=== PATIENT | female | born 2000 | race Caucasian/White ===

== ENCOUNTER 2024-02-03 18:30 | Emergency (ER) | payer SELFPAY ==
--- NOTE | 2024-02-03 20:07 | PC.NURSE ---
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 Dose provided by pharmacist.
--- NOTE | 2024-02-03 23:37 | ED.GENADULT ---
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
== END 2024-02-03 20:08 | disposition home or self-care (01) ==
PROVIDERS: Emergency Provider Emergency Medicine
DX: Z20.818 Contact with and (suspected) exposure to other bacterial communicable diseases (principal)
CPT/HCPCS: 99281

== ENCOUNTER → 2024-02-18 15:59 | Outpatient (CLI) | payer OTHER, SELFPAY | PROVIDERS: Referring Provider Internal Medicine; Visit Provider Internal Medicine | DX: Z23 Encounter for immunization (principal) | CPT/HCPCS: 90471; 90656 ==

== ENCOUNTER 2024-04-30 22:51 | Emergency (ER) | payer OTHER, SELFPAY ==
--- NOTE | 2024-04-30 22:54 | DI.RAD.S_ITS ---
PROCEDURE: XR CHEST 2V INDICATIONS: cough with hemoptosis TECHNIQUE: 2 views of the chest were acquired. COMPARISON: None. FINDINGS: Surgical changes and devices: None. Lungs and pleura: Lungs are clear. No pleural effusions or pneumothorax. Mediastinum: Mediastinal contours are normal. Heart size is normal. Bones and chest wall: No suspicious bony abnormalities. Soft tissues appear unremarkable. IMPRESSION: No acute cardiopulmonary abnormality is seen. Dictated by: Diego Palmer M.D. on 04/30/2024 at 23:19 Approved by: Diego Palmer M.D. on 04/30/2024 at 23:20
--- NOTE | 2024-04-30 22:57 | ED.URI ---
HPI - URI/Sore Throat General Chief Complaint: Shortness of Breath/Dyspnea Stated Complaint: upper resitory Time Seen by Provider: 04/30/24 22:57 History of Present Illness HPI Narrative: 23-year-old female with history of PCOS, childhood asthma presents with 1 week of nonproductive cough, intermittent fevers, headache, intermittent nosebleeds. Works as tech in ED, had coughing fit and coughed up several clots of red blood after a nosebleed. Patient states that her primary concern is that she may have pneumonia. Feels as though there is fluid in her chest. Cough worse when lying flat. Recently bought saline spray for nosebleeds. Related Data Allergies Allergy/AdvReac Type Severity Reaction Status Date / Time No Known Drug Allergies Allergy Verified 02/03/24 19:44 Patient History Social History Smoking Status: Current every day smoker Exam Initial Vital Signs Initial Vital Signs: Vital Signs Temperature 99.8 F H 04/30/24 23:02 Pulse Rate 102 H 04/30/24 23:02 Respiratory Rate 20 04/30/24 23:02 Blood Pressure 155/90 H 04/30/24 23:02 Pulse Oximetry 100 04/30/24 23:02 Oxygen Delivery Method Room Air 04/30/24 23:02 Const: Awake, alert, no acute distress, nontoxic appearing HEENT: Small amount dried blood L nare, no active bleeding Cardiac: Tachycardia, regular rhythm RESP: unlabored, clear bilaterally, no wheezing Skin: Warm, Dry, intact, no rashes Neuro: AO x3, CN II-XII grossly intact, moves all extremities Course Orders Ordered: ED Orders 04/30/24 22:54 XR chest 2V Stat Discontinued Medications Albuterol (Albuterol Hfa Prepack) 1 box MISC DIRECTED ONE Stop: 05/01/24 00:34 Last Admin: 05/01/24 00:40 Dose: 1 box Documented By: VAUGHN Albuterol/Ipratropium (Albuterol/Ipratropium 3 Ml Ampul) 3 ml INH NOW ONE Stop: 04/30/24 23:24 Last Admin: 04/30/24 23:41 Dose: 3 ml Documented By: TANO Benzonatate (Benzonatate 100 Mg Capsule) 200 mg PO NOW ONE Stop: 04/30/24 23:29 Last Admin: 04/30/24 23:52 Dose: 200 mg Documented By: VAUGHN Dexamethasone (Dexamethasone 10 Mg/Ml Vial) 10 mg PO NOW ONE Stop: 04/30/24 23:29 Last Admin: 04/30/24 23:52 Dose: 10 mg Documented By: VAUGHN Vital Signs Vital signs: Vital Signs - 8 hr 04/30/24 23:02 04/30/24 23:22 04/30/24 23:23 Temperature 99.8 F H Pulse Rate 102 H 92 H 91 H Respiratory Rate 20 Blood Pressure 155/90 H 146/68 H Pulse Oximetry 100 99 99 Oxygen Delivery Method Room Air Room Air Oxygen Flow Rate Fraction of Inspired Oxygen 04/30/24 23:30 04/30/24 23:30 04/30/24 23:34 Temperature Pulse Rate 86 Respiratory Rate 21 Blood Pressure 133/71 Pulse Oximetry 98 Oxygen Delivery Method Oxygen Flow Rate Fraction of Inspired Oxygen 04/30/24 23:41 05/01/24 00:00 05/01/24 00:30 Temperature Pulse Rate 73 Respiratory Rate 16 Blood Pressure 123/64 126/59 L Pulse Oximetry 98 Oxygen Delivery Method Room Air Oxygen Flow Rate 0 Fraction of Inspired Oxygen 21 05/01/24 00:30 05/01/24 00:48 Temperature 99.9 F H Pulse Rate 91 H Respiratory Rate 20 Blood Pressure Pulse Oximetry 98 Oxygen Delivery Method Oxygen Flow Rate Fraction of Inspired Oxygen MDM - URI/Sore Throat Differential Diagnosis Differential diagnosis: Likely upper respiratory infection, viral infection, bronchitis and influenza Imaging Data Chest x-ray: Radiologist's Impression: PROCEDURE: XR CHEST 2V INDICATIONS: cough with hemoptosis TECHNIQUE: 2 views of the chest were acquired. COMPARISON: None. FINDINGS: Surgical changes and devices: None. Lungs and pleura: Lungs are clear. No pleural effusions or pneumothorax. Mediastinum: Mediastinal contours are normal. Heart size is normal. Bones and chest wall: No suspicious bony abnormalities. Soft tissues appear unremarkable. IMPRESSION: No acute cardiopulmonary abnormality is seen. Dictated by: Diego Palmer M.D. on 04/30/2024 at 23:19 Approved by: Diego Palmer M.D. on 04/30/2024 at 23:20 [facility] Narrative Medical decision making narrative: 1 week of cough and intermittent nosebleeds. Checked in for evaluation of possible PNA. Patient did have episode of coughing up blood, however this was after nosebleeds. Patient herself states that she thinks the blood is from her nosebleeds. Hx of nosebleeds in youth requiring cautery. Patient initially tachycardic in triage, however after resting in ED bed heart rate returns to <100bpm. 2 view chest XR negative for PNA. No active bleeding from nares in ED. Lungs clear bilaterally, possible faint inspiratory crackles at bases. Patient given duoneb treatment, however patient states this only made her lightheaded. Patient monitored in the ED, no further episodes of bleeding noted. Vital signs remained stable. Patient requested cough medications, these were called in to [facility] in [place]. Steroid taper also sent with the patient. Advised to use saline sprays for nosebleeds, can also use Flonase as there is a high amount of allergens at this time. Discharge Plan Departure Patient Disposition: Home Clinical Impression: Upper respiratory infection Instructions: DI for Acute Bronchitis Activity Restrictions/Additional Instructions: Your prescriptions of steroids and cough medications have been sent to your pharmacy via call in. They should be available later in the morning. Take Tylenol and ibuprofen as needed for fever or pain. Robitussin may also be used [id number] for cough and cold. Use Flonase or nasal sprays to keep your nasal mucosa moist to prevent nosebleeds. Referrals: Miscellaneous,Doctor, MD [Primary Care Provider] - Stand Alone Forms: Patient Portal/API/Survey
[2024-04-30 23:02] VITALS: BP 155/90; PULSE 102; RESP 20; TEMP 37.7; O2SAT 100; BMI 38.3
--- NOTE | 2024-04-30 23:09 | PC.NURSE ---
Provider aware of triage assessment and ordered 2V chest xray.
--- NOTE | 2024-04-30 23:17 | PC.NURSE ---
Pt reports nausea at this time and declines antiemetic medications. She also reports hx of childhood asthma.
[2024-04-30 23:22] VITALS: PULSE 92; O2SAT 99
[2024-04-30 23:23] VITALS: BP 146/68; PULSE 91; O2SAT 99
[2024-04-30 23:30] VITALS: BP 133/71; PULSE 86; O2SAT 98
[2024-04-30 23:34] VITALS: RESP 21
[2024-04-30 23:41] VITALS: PULSE 73; RESP 16; O2SAT 98
[2024-04-30] MEDS: ALBUTEROL/IPRATROPIUM 3 ML AMPUL INH (23:41)
[2024-04-30] MEDS: DEXAMETHASONE 10 MG/ML VIAL PO (23:52)
[2024-04-30] MEDS: BENZONATATE 100 MG CAPSULE 200 MG PO (23:52)
--- NOTE | 2024-04-30 23:57 | PC.NURSE ---
RT was just at bedside and completed treatment. Patient reports, it didn't really help much and made her more lightheaded.
[2024-05-01] VITALS: BP 123/64
[2024-05-01 00:30] VITALS: BP 126/59; PULSE 91; TEMP 37.7; O2SAT 98
[2024-05-01] MEDS: ALBUTEROL HFA PREPACK 1 BOX MISC (00:40)
[2024-05-01 00:48] VITALS: RESP 20
== END 2024-05-01 00:47 | disposition home or self-care (01) ==
PROVIDERS: Emergency Provider Emergency Medicine
DX: J06.9 Acute upper respiratory infection, unspecified (principal); R04.0 Epistaxis; F17.200 Nicotine dependence, unspecified, uncomplicated
CPT/HCPCS: 71046; 99283; J1100

== ENCOUNTER 2024-07-07 07:59 | Emergency (ER) | payer OTHER, SELFPAY ==
[2024-07-07 08:24] VITALS: BP 153/78; PULSE 89; RESP 18; TEMP 37; O2SAT 98; BMI 40.7
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
[2024-07-07 09:59] VITALS: BP 133/89; PULSE 87; RESP 12; O2SAT 97
== END 2024-07-07 10:00 | disposition home or self-care (01) ==
PROVIDERS: Emergency Provider Emergency Medicine
DX: M54.2 Cervicalgia (principal); R07.89 Other chest pain; M54.6 Pain in thoracic spine; W50.0XXA Accidental hit or strike by another person, initial encounter
CPT/HCPCS: 71046; 99281; 99283